=== PATIENT | female | born 1980 | race Asian ===

== ENCOUNTER 2018-11-13 17:06 | Emergency (ER) | payer BC, SELFPAY ==
[2018-11-13 17:49] LABS: #Basophils 0.1 thou/uL (0.0-0.2); #Eosinphils 0.1 thou/uL (0.0-0.7); #Lymphocytes 2.6 thou/uL (1.20-3.40); #Monocytes 0.5 thou/uL (0.11-0.59); %Eosinophils 1.5 % (0.0-10.0); %Lymphocytes 35.8 % (21.0-51.0); %Monocytes 6.5 % (0.0-10.0); %Neutrophils 55.3 % (42.0-75.0); Mean Corpuscular HGB CONC 31.3 g/dL (32.0-36.0); Mean Corpuscular Hemoglobin 26.1 pg (27.0-31.0); Mean Corpuscular Volume 83.5 fL (78.0-98.0); Mean Platelet Volume 8.8 fL (7.4-10.4); Platelet Count 254 thou/uL (130-400); RBC Distribution Width 14.3 % (11.5-14.5); Red Blood Cell (RBC) Count 4.21 mill/uL (4.20-5.40); White Blood Cell (WBC) Count 7.2 thou/uL (4.8-10.8)
--- NOTE | 2018-11-13 19:28 | ULT ---
TRANSABDOMINAL AND TRANSVAGINAL PELVIC ULTRASOUND 11/13/18 PROVIDED CLINICAL HISTORY: Vaginal bleeding. FINDINGS: The uterus measures about 7.8 x 4.7 x 6.1 cm and demonstrates an intrauterine gestational sac with a pole and yolk sac. The crown-rump length of the pole corresponds to a 6 week, 1 day gesta tion. No heart tones are documented. There is no evidence for perigestational hemorrhage. The right ovary appears sonographically unremarkable. There is no evidence for significant free pelvi c fluid. Color doppler and spectral analysis of the right ovarian waveform demonstrates normal flow. Left ovary is not visualized. IMPRESSION: Intrauterine gestation, 6 weeks, 1 day by crown-rump length. heart tones are not documented. Fo llowup beta HCG values and pelvic ultrasound are recommended as indicated. POS: LANNY
[2018-11-15 03:19] LABS: Chlamydia by PCR Not Detected (NotDetected); GC by PCR Not Detected (NotDetected)
== END 2018-11-13 19:07 | disposition home or self-care (01) ==
LOC: SCSER 17:06
DX: O20.0 Threatened abortion (principal)
CPT/HCPCS: 36415; 76856; 84702; 85025; 86900; 86901; 87480; 87491; 87510; 87591; 87660

== ENCOUNTER 2020-05-08 07:36 | Inpatient (IN) | payer MEDICAID, OTHER, SELFPAY ==
[2020-05-08 08:29] VITALS: BMI 32.4
[2020-05-08] MEDS ORDERED: Ondansetron PF 4 MG/2 ML Vial IVP PRN ×3 (08:41→15:19)
[2020-05-08] MEDS ORDERED: Acetaminophen 500 MG TAB PO PRN (08:41)
[2020-05-08] MEDS ORDERED: Lidocaine 1% (PF) 30 ML VIAL SC PRN (08:41)
[2020-05-08] MEDS ORDERED: Promethazine HCl 25 MG/ML VIAL IM PRN ×2 (08:41→11:53)
[2020-05-08] MEDS ORDERED: NS / Oxytocin 40 units/1000ml 1,000 ML IV PRN (08:41)
[2020-05-08] MEDS ORDERED: hydrALAZINE 20 MG/ML VIAL SLOW IVP PRN ×2 (08:41→15:19)
[2020-05-08] MEDS ORDERED: Ibuprofen 800 MG TAB PO PRN (08:41)
[2020-05-08] MEDS ORDERED: Butorphanol Tartrate 1 MG/ML VIAL SLOW IVP PRN (08:41)
[2020-05-08] MEDS ORDERED: NS w/ Oxytocin 10 units 500 ML IV SCH ×2 (08:45)
[2020-05-08] MEDS ORDERED: Lactated Ringer's 1,000 ML IV SCH (08:45)
--- NOTE | 2020-05-08 08:51 | PDOC.FPROB ---
FMR OB H&P: HPI - History of Present Illness Chief Complaint: Rupture of membranes Indentification: 39 yo History of Present Illness: 39 yo @39 weeks gestation presents for SROM @ 0700 this AM. Reports gross leakage of clear fluid since then. Denies contractions, vag bleeding, vag discharge. Reports pos FM. Prior delivery for preeclampsia. No BP issues this . Primary Care Physician: Grant FMR OB H&P: Current - Care : 5 Para: 1122 Gestational age: 39 Due date: 05/15/2020 Dating Criteria: 18 wk sono + LMP Course/Complications: None - OB Labs Blood type: B RH: positive Antibody Screen: negative HIV: negative RPR: negative HepBsAg: negative Rubella: immune Quad screen: negative Urine drug screen: negative Gonorrhea: negative Chlamydia: negative Pap Smear: NILM 1 hour gtt: 84 GBS: negative H&H: 11.8/35 Platelets: 222 FMR OB H&P: History - Past Medical History PMH: None - OB History OB History: 2 SAB 1 PTD for preeclampsia - [employer] History [employer] History: 2019 - Surgical History Sx History: None, denies - Social History Social History: Denies etoh, tobacco and drug use - Family History Family History: NA FMR OB H&P: Medications - Current Home Medications: Medication Instructions Recorded Confirmed Type Vits96/Iron Fum/Folic 1 each PO DAILY 05/08/20 05/08/20 History [ Tablet] Allergies/Adverse Reactions: Allergies Allergy/AdvReac Type Severity Reaction Status Date / Time No Known Allergies Allergy Verified 05/08/20 08:34 FMR OB H&P: ROS - Review of Systems General: denies: fever/chills, fatigue Eyes: denies: vision changes, scotomas ENT: denies: nasal congestion, sore throat Cardiovascular: denies: edema Respiratory: denies: cough, shortness of breath Gastrointestinal: denies: abdominal pain, cramping, nausea, vomiting, diarrhea, constipation Genitourinary (Female): denies: dysuria, vaginal pain, vaginal bleeding, contractions, vaginal pressure Musculoskeletal: denies: pain Neurologic: denies: syncope Integumentary: denies: rash Hematologic/Lymphatic: denies: prolonged or excessive bleeding FMR OB H&P: Vital Signs - Maternal Vital signs: Vital Signs - First Documented Temp Pulse Resp BP Pulse Ox 98.1 F 70 16 126/84 99 05/08/20 08:21 05/08/20 08:21 05/08/20 08:21 05/08/20 08:21 05/08/20 08:21 - Heart Tones Baseline: 140 Variability: moderate Acceleration: present Deceleration: absent Category: category 1 [place] contractions every: rare, few FMR OB H&P: Physical Exam - Physical Exam General: NAD, awake, alert and oriented HEENT: normocephalic and atraumatic, PERRLA, EOMI, conjunctiva clear, grossly normal vision, grossly normal hearing Neck: trachea midline Heart: RRR, normal S1/S2, no murmurs/rubs/gallops, pulses present, other (trace edema bl LE) General: CTAB, no respiratory distress, good air movement, no rales/rhonchi, no wheezing, no retractions Abdomen: soft, gravid, non-tender, bowel sound present Neurological: no focal deficit Skin: no rash, good tugor Lymphatic: no purpura Psychiatric: normal mood and affect - Pelvic Exam SVE: /-2 Membranes: Ruptured Presentation: Vertex Estimated Weight: 7 lbs FMR OB H&P: A/P - Problem List (1) Rupture of membranes with clear amniotic fluid Current Visit: Yes Status: Acute Code(s): [id number] - (2) Term Current Visit: Yes Status: Acute Code(s): Z34.90 - ENCNTR FOR SUPRVSN OF NORMAL , UNSP, UNSP TRIMESTER (3) Advanced maternal age (AMA) in Current Visit: Yes Status: Acute Code(s): [id number] - Disposition: Stable, admit to l&d, pit for augmentation. Monitor BP. Discussion: Date/Time: 05/08/20 0848 39 yo @ 39 weeks with SROM. 1) SROM - Term admit to l&d - Pitocin for augmentation - GBS neg - Epidural pending 2) AMA: - Genetic screening negative 3) TIUP: see above This H&P was discussed with Dr. Arndt who agree with the above documentation and plan. Addendum - Attending - Attending Attestation Date/Time: 05/08/20 1629 I personally evaluated the patient and discussed the management with Dr. Pinzon. I agree with the History, Examination, Assessment and Plan documented above.
[2020-05-08] MEDS ORDERED: Bupivacaine/Epinephrine 0.25% 30 ML VIAL ONE (09:05)
[2020-05-08 09:47] LABS: Hemoglobin 13.2 g/dL (12.0-16.0); Mean Corpuscular HGB CONC 33.7 g/dL (32.0-36.0); Mean Corpuscular Hemoglobin 32.7 pg (27.0-31.0); Mean Corpuscular Volume 97.2 fL (78.0-98.0); Mean Platelet Volume 10.3 fL (7.4-10.4); Platelet Count 161 thou/uL (130-400); RBC Distribution Width 11.1 % (11.5-14.5); Red Blood Cell (RBC) Count 4.03 mill/uL (4.20-5.40); White Blood Cell (WBC) Count 8.3 thou/uL (4.8-10.8)
[2020-05-08 10:31] LABS: HBSAg Index 0.15 S/CO (0-0.99); Hep B Surf Ag Non-Reactive S/CO (NonReactive); Syphilis Antibody Nonreactive (Nonreactive); Syphilis Antibody Index 0.03 S/CO (<1.00 Non-Reactive)
[2020-05-08] MEDS ORDERED: Fentanyl 4 mcg/Bup 0.1% Cadd 100 ML ONE (11:10)
[2020-05-08] MEDS ORDERED: EPHEDRINE 25 MG/5 ML SYRINGE SLOW IVP PRN (11:53)
[2020-05-08] MEDS ORDERED: Acetaminophen 325 MG TAB PO PRN (11:53)
[2020-05-08] MEDS ORDERED: Naloxone HCl 0.4 mg/ml Vial IVP PRN ×2 (11:53)
[2020-05-08] MEDS ORDERED: diphenhydrAMINE 50 MG/ML VIAL IVP PRN (11:53)
[2020-05-08] MEDS ORDERED: Lactated Ringer's 500 ML IV PRN (11:53)
[2020-05-08] MEDS: Misoprostol 100 MCG TAB VAG SCH ×3 (11:56→15:18)
[2020-05-08] MEDS ORDERED: Fentanyl 4 mcg/Bupivacaine 0.1% Cassette 100 ML EPIDURAL SCH (12:00)
[2020-05-08] MEDS ORDERED: Communication Order-Pharmacy FS PRN (12:00)
[2020-05-08] MEDS ORDERED: Lidocaine 1% (PF) 30 ML VIAL ONE (13:58)
[2020-05-08] MEDS ORDERED: NS / Oxytocin 40 units/1000ml 1,000 ML ONE (13:58)
[2020-05-08] MEDS ORDERED: Misoprostol 200 MCG TAB ONE (14:26)
--- NOTE | 2020-05-08 14:52 | PDOC.OPDEL ---
OB Operative/Delivery Note Delivery Dr/Surgeon: Eliana/Yris Pre-Delivery Diagnosis: ruptured membrane Procedure/Post Delivery Dx: spontaneous vaginal delivery Weeks gestation: 39 Anesthesia: epidural - Findings A Sex: male - 1 min: 9 - 5 min: 9 - Additional Findings/Plan Placenta delivered: spontaneous Repaired Obstetrical Laceration: 2nd degree Estimated blood loss: 1105 mL Compilations/Other Findings: See dictation for full detail Post delivery plan: routine recovery Addendum - Attending - Attending Attestation Date/Time: 05/09/20 0800 I was present for the entire delivery.
[2020-05-08] MEDS ORDERED: Bisacodyl 10 MG SUPP PR PRN (15:19)
[2020-05-08] MEDS ORDERED: Lanolin Ointment 7 GM TUBE TOP PRN (15:19)
[2020-05-08] MEDS ORDERED: Benzocaine-Menthol 82.5 ML CAN TOP PRN (15:19)
[2020-05-08] MEDS ORDERED: diphenhydrAMINE 25 MG CAP PO PRN (15:19)
[2020-05-08] MEDS ORDERED: Milk Of Magnesia 30 ML UDCUP PO PRN (15:19)
[2020-05-08] MEDS ORDERED: NS / Oxytocin 40 units/1000ml 1,000 ML IV SCH (15:19)
[2020-05-08] MEDS ORDERED: Preparation H Ointment 28 GM TUBE PR PRN (15:19)
[2020-05-08 17:33] LABS: Hemoglobin 11.6 g/dL (12.0-16.0); Mean Corpuscular HGB CONC 34.4 g/dL (32.0-36.0); Mean Corpuscular Volume 98.8 fL (78.0-98.0); Mean Platelet Volume 10.5 fL (7.4-10.4); Platelet Count 143 thou/uL (130-400); RBC Distribution Width 11.1 % (11.5-14.5); White Blood Cell (WBC) Count 17.5 thou/uL (4.8-10.8)
[2020-05-08] MEDS: Ibuprofen 800 MG TAB PO SCH (19:07)
[2020-05-08] MEDS: Ferrous Sulfate 325 MG TAB PO SCH (21:50)
[2020-05-08] MEDS: Docusate Calcium (SURFAK) 240 MG CAP PO SCH (21:50)
[2020-05-09] MEDS: Ibuprofen 800 MG TAB PO SCH ×2 (05:24→14:01)
[2020-05-09 05:45] LABS: #Basophils 0.1 thou/uL (0.0-0.2); #Eosinphils 0.1 thou/uL (0.0-0.7); #Lymphocytes 2.9 thou/uL (1.20-3.40); #Monocytes 0.6 thou/uL (0.11-0.59); #Neutrophils 7.9 thou/uL (1.40-6.50); %Basophils 0.6 % (0.0-1.0); %Monocytes 5.5 % (0.0-10.0); %Neutrophils 67.9 % (42.0-75.0); Hemoglobin 9.3 g/dL (12.0-16.0); Mean Corpuscular HGB CONC 33.5 g/dL (32.0-36.0); Mean Corpuscular Hemoglobin 33.2 pg (27.0-31.0); Mean Platelet Volume 9.9 fL (7.4-10.4); Platelet Count 146 thou/uL (130-400); RBC Distribution Width 11.2 % (11.5-14.5); Red Blood Cell (RBC) Count 2.81 mill/uL (4.20-5.40); White Blood Cell (WBC) Count 11.7 thou/uL (4.8-10.8)
--- NOTE | 2020-05-09 07:01 | PDOC.PP ---
Post Progress Note Post Day #: 1 Subjective: 39 yo G5 s/p pp day 1. Doing well pain well controlled, all pp milestones met. PO intake tolerated: yes Flatus: yes Ambulation: yes Vital Signs (12 hours) Temp Pulse Resp BP Pulse Ox 05/09/20 05:20 98.4 F 73 16 108/70 05/09/20 00:00 98.4 F 74 16 109/63 05/08/20 21:15 99.1 F 76 16 108/55 L 98 Weight Weight 88.451 kg - Physical Examination General: NAD Cardiovascular: no m/r/g, RRR Respiratory: clear to auscultation bilaterally, non-labored breathing Abdominal: + bowel sounds, lochia, no distention, appropriately TTP Extremities: negative homans (B) Skin: no rash Neurological: no gross focal deficits Psychiatric: normal affect Result Diagrams: 05/09/20 05:38 Additional Labs: Post Labs Blood Type B POSITIVE 05/08/20 09:31 Hep Bs Antigen Non-Reactive S/CO (NonReactive) 05/08/20 09:31 (1) Rupture of membranes with clear amniotic fluid Code(s): [id number] - Status: Acute (2) Term Code(s): Z34.90 - ENCNTR FOR SUPRVSN OF NORMAL , UNSP, UNSP TRIMESTER Status: Acute (3) Advanced maternal age (AMA) in Code(s): OQV5517 - Status: Acute - Assessment/Plan 1) PP day 1 - s/p with 2nd degree laceration - pp hemporrhage, vitals stable, normotensive and not tachy - possible dcd later today vs obs overnight and dc tomorrow. Addendum - Attending - Attending Attestation Date/Time: 05/09/20 1282 I personally evaluated the patient and discussed the management with Dr. Pinzon. I agree with the History, Examination, Assessment and Plan documented above.
[2020-05-09] MEDS: Docusate Calcium (SURFAK) 240 MG CAP PO SCH (07:35)
[2020-05-09] MEDS ORDERED: Adacel (T-DAP) 0.5 ML SYRINGE IM ONE (09:00)
[2020-05-09] MEDS ORDERED: Prenatal Vitamin 1 TAB PO SCH (09:00)
[2020-05-09] MEDS: Ferrous Sulfate 325 MG TAB PO SCH (09:21)
[2020-05-09 12:17] VITALS: BP 123/65; TEMP 98.4
--- NOTE | 2020-05-09 15:53 | PDOC.EVN ---
Event Note - Event Note Event Note: DISCHARGE NOTE: Patient feels well with no Sxs/signs of hypovolemia. States ready to go home per Dr Nora Link who say her. As patient desires "no males" in room, I requested Dr link clear her for DC. I have reviewed the case and vitals, ok for DC home.
--- NOTE | 2020-05-11 02:41 | OP ---
DATE OF PROCEDURE: 05/09/2020 RESIDENT SURGEON: Lois Monroy DO ATTENDING SURGEON: Lady Arndt MD PROCEDURES: Spontaneous vaginal delivery, second-degree perineal laceration repair. PREOPERATIVE DIAGNOSES: 1. Term intrauterine . 2. Pre-labor rupture of membranes. 3. Advanced maternal age. POSTOPERATIVE DIAGNOSES: 1. Term intrauterine , delivered. 2. Spontaneous vaginal delivery. 3. Second-degree perineal laceration, status post repair. 4. Pre-labor rupture of membranes. 5. Advanced maternal age. INDICATIONS: This is a 39-year-old, G5, P1-1-2-2 at 39 weeks' gestation, who presented with SROM at 7 o'clock in the morning. She was admitted to Labor and Delivery for expectant management. DESCRIPTION OF PROCEDURE: After an uneventful intrapartum course, a vigorous male infant was delivered over an intact perineum in occipitoanterior position. Anterior shoulder was delivered with the remainder of the body to follow. No nuchal cord. The cord was clamped and cut, and grossly normal male was placed on mother's chest. Cord blood was collected. The placenta was delivered with gentle traction, which was noted to be intact with 3-vessel cord and discarded. The cervix and vagina were inspected for lacerations. There was noted to be a second- degree laceration, which was repaired in the usual fashion using 3-[address] Of note, there was a cyst identified when repairing perineum. This cyst was excluded from the laceration repair. The patient to go to for routine recovery/care. FINDINGS: A grossly normal male infant with of 9 and 9 at one and five minutes respectively. weight was noted to be 3.642 kg. Job ID: [id number] [facility]
== END 2020-05-09 17:10 | disposition home or self-care (01) | DRG 806 ==
LOC: L&D/OP 07:36 → L&D 07:45 → 3SW 18:58
PROVIDERS: ADMIT Obstetrics & Gynecology; ATTEND Obstetrics & Gynecology
PROC: 10E0XZZ Delivery of Products of Conception, External Approach (ICD-10-PCS; principal; 2020-05-08)
PROC: 0KQM0ZZ Repair Perineum Muscle, Open Approach (ICD-10-PCS; 2020-05-08)
DX: O70.1 Second degree perineal laceration during delivery (principal); O72.1 Other immediate postpartum hemorrhage; Z37.0 Single live birth; Z3A.39 39 weeks gestation of pregnancy
CPT/HCPCS: 36415; 51702; 85025; 85027; 86780; 86850; 86900; 86901; 87340; J2001; J2590